=== PATIENT | male | born 1970 | race Two or more races ===

== ENCOUNTER → 2021-09-23 | Outpatient (CLI) | payer OTHER ==
--- NOTE | 2021-09-23 10:49 | RAD ---
EXAM: Bilateral carotid duplex with waveform analysis. 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 Instructions: / History: . . TECHNIQUE: Longitudinal and transverse sonographic images of the bilateral carotid arteries was perfo rmed utilizing grayscale, color and spectral Doppler techniques. COMPARISON: None FINDINGS: Right Carotid: No visible stenosis or significant plaque. Left Carotid: No visible stenosis or significant plaque. Vertebrals: Antegrade flow bilaterally. Right: PSV CCA (cm/s): 99 cm/s PSV ICA (cm/s): 99 cm/s EDV ICA (cm/s): 44 cm/s PSV ECA (cm/s): 122 cm/s Subclavian PSV (cm/s): Not evaluated ICA/CCA Ratio: 1.0 Left: PSV CCA (cm/s): 106 cm/s PSV ICA (cm/s): 89 cm/s EDV ICA (cm/s): 38 cm/s PSV ECA (cm/s): 119 cm/s Subclavian PSV (cm/s): Not evaluated ICA/CCA Ratio: Less than 1.0 IMPRESSION: Normal bilateral carotid artery duplex ultrasound with no evidence of carotid artery atherosclerosis. The mildly elevated end-diastolic velocity within the mid right internal carotid artery is likely sp urious given normalcy of all remaining parameters. Consensus Panel Yoder-scale and Doppler US Criteria for Diagnosis of ICA Stenosis Degree of Stenosis (%) ICA PSV (Cm/sec) Plaque Estimate (%)* Normal <125 None <50 <125 <50 50-69 125-230 >50 >70 but < near occlusion >230 >50 Near occlusion High, low, or undetectable Visible Total occlusion Undetectable Visible, no detectable lumen *Plaque estimate (diameter reduction) with yoder-scale and color Doppler US Degree of Stenosis (%) ICA/CCA PSV Ratio ICA EDV (cm/sec) Normal <2.0 <40 <50 <2.0 <40 50-69 2.0-4.0 40-100 >70 but < near occlusion >4.0 >100 Near occlusion Variable Variable Total occlusion Not applicable Not applicable Electronically signed by: Erick Caraballo MD (09/23/2021 10:46 AM) [id number]
== END ==
LOC: US 06:49
PROVIDERS: ATTEND Family Medicine
DX: H35.3131 Nonexudative age-related macular degeneration, bilateral, early dry stage (principal); I77.89 Other specified disorders of arteries and arterioles
CPT/HCPCS: 93880